=== PATIENT | female | born 1985 | race Caucasian/White ===

== ENCOUNTER → 2020-12-26 | Outpatient (CLI) | payer OTHER ==
[2020-12-26 18:40] LABS: HEMATOCRIT 37.8 % (36.0-47.0); HEMOGLOBIN 12.9 g/dl (12.0-15.5); MEAN CORPUSCULAR HEMOGLOBIN 31.3 pg (27.0-33.0); MEAN CORPUSCULAR HGB CONC 34.1 g/dl (32.0-36.5); MEAN CORPUSCULAR VOLUME 91.7 fl (80.0-96.0); PLATELET COUNT, AUTOMATED 221 10^3/uL (150-450); RED BLOOD COUNT 4.12 10^6/uL (4.00-5.40); WHITE BLOOD COUNT 6.9 10^3/uL (4.0-10.0)
[2020-12-26 20:12] LABS: HEPATITIS C VIRUS ABY INDEX < 0.0 INDEX (<0.8); HIV 1&2 SCREEN CENTAUR NEGATIVE (NEGATIVE)
[2020-12-26 23:32] LABS: GC DNA AMPLIFICATION NEGATIVE (NEGATIVE)
== END ==
LOC: M PLALAB 15:48
PROVIDERS: ATTEND Advanced Practice Midwife
DX: O09.519 Supervision of elderly primigravida, unspecified trimester (principal); Z3A.00 Weeks of gestation of pregnancy not specified

== ENCOUNTER → 2021-01-24 | Outpatient (CLI) | payer OTHER | LOC: M PLALAB 13:31 | PROVIDERS: ATTEND Advanced Practice Midwife | DX: O09.511 Supervision of elderly primigravida, first trimester (principal) ==

== ENCOUNTER → 2021-03-20 | Outpatient (CLI) | payer OTHER | LOC: M WHC 07:02 | PROVIDERS: ATTEND Advanced Practice Midwife | DX: Z36.9 Encounter for antenatal screening, unspecified (principal); Z3A.20 20 weeks gestation of pregnancy ==

== ENCOUNTER → 2021-05-09 | Outpatient (CLI) | payer OTHER ==
[2021-05-09 10:50] LABS: HEMATOCRIT 37.8 % (36.0-47.0); HEMOGLOBIN 12.7 g/dl (12.0-15.5); MEAN CORPUSCULAR HEMOGLOBIN 32.1 pg (27.0-33.0); MEAN CORPUSCULAR HGB CONC 33.6 g/dl (32.0-36.5); MEAN CORPUSCULAR VOLUME 95.5 fl (80.0-96.0); PLATELET COUNT, AUTOMATED 210 10^3/uL (150-450); RED BLOOD COUNT 3.96 10^6/uL (4.00-5.40)
[2021-05-09 13:01] LABS: GC DNA AMPLIFICATION NEGATIVE (NEGATIVE)
== END ==
LOC: M PLALAB 07:23
PROVIDERS: ATTEND Obstetrics & Gynecology
DX: Z3A.24 24 weeks gestation of pregnancy (principal)

== ENCOUNTER → 2021-07-11 | Outpatient (REF) | payer OTHER | LOC: M SFHCWAGY 17:08 | PROVIDERS: ATTEND Specialist | DX: Z34.83 Encounter for supervision of other normal pregnancy, third trimester (principal) ==

== ENCOUNTER 2021-07-24 00:41 | Inpatient (IN) | payer OTHER ==
[~2021-07-24] VITALS: Ht 167.6 cm; Wt 77.2 kg
[2021-07-24 01:08] VITALS: BP 129/79
[2021-07-24 02:52] VITALS: BP 111/76
[2021-07-24] MEDS ORDERED: TRANEXAMIC ACID INJection 1,000 MG in NS 100 ML IV PRN (04:40)
[2021-07-24] MEDS ORDERED: CARBOPROST TROMETHAMINE 250 MCG/ML AMP IM PRN (04:40)
[2021-07-24] MEDS ORDERED: LACTATED RINGER'S 1000 ML IV PRN (04:40)
[2021-07-24] MEDS ORDERED: OXYTOCIN DRIP 30 UNITS in IV 1 EA IV PRN ×4 (04:40)
[2021-07-24] MEDS ORDERED: METHYLERGONOVINE MALEATE 0.2 MG/ML VIAL (J2210) IM PRN (04:40)
[2021-07-24 05:02] LABS: HEMATOCRIT 41.4 % (36.0-47.0); HEMOGLOBIN 14.8 g/dl (12.0-15.5); MEAN CORPUSCULAR HEMOGLOBIN 32.5 pg (27.0-33.0); MEAN CORPUSCULAR HGB CONC 35.7 g/dl (32.0-36.5); PLATELET COUNT, AUTOMATED 228 10^3/uL (150-450); RED BLOOD COUNT 4.55 10^6/uL (4.00-5.40); WHITE BLOOD COUNT 9.1 10^3/uL (4.0-10.0)
[2021-07-24] MEDS ORDERED: PRENTAB9 PO (05:50)
[2021-07-24 06:08] VITALS: BP 136/78
[2021-07-24] MEDS: PRENATAL VITAMINS CHEWABLE TABLET PO SCH (09:00)
[2021-07-24] MEDS ORDERED: LIDOCAINE 1% MDV 50ML VIAL As Ordered ONE (10:37)
[2021-07-24] MEDS ORDERED: LIDOCAINE 1% MDV 20ML VIAL As Ordered ONE (10:38)
[2021-07-24] MEDS ORDERED: LIDOCAINE 1% MDV 20ML VIAL INFIL ONE (10:40)
[2021-07-24] MEDS ORDERED: ANUSOL HC CREAM 30GM TOP PRN (11:40)
[2021-07-24] MEDS ORDERED: IBUPROFEN 600MG TAB PO PRN (11:40)
[2021-07-24] MEDS ORDERED: MOM 30ML SUSPENSION UDC PO PRN (11:40)
[2021-07-24] MEDS ORDERED: METHYLERGONOVINE MALEATE 0.2 MG TAB PO PRN (11:40)
[2021-07-24] MEDS ORDERED: DOCUSATE SODIUM 100MG CAPSULE PO PRN (11:40)
[2021-07-24] MEDS ORDERED: MEASLES,MUMPS,RUBELLA VACCINE INJ (MMR-II) (90707) SC SCH (11:40)
[2021-07-24] MEDS ORDERED: DIBUCAINE 1% OINTMENT 30GM TOP PRN (11:40)
[2021-07-24] MEDS ORDERED: IBUPROFEN 800 MG TAB PO PRN (11:40)
[2021-07-24] MEDS ORDERED: ACETAMINOPHEN TAB 650MG DOSE (2X325MG) PO PRN (11:40)
[2021-07-24] MEDS ORDERED: ACETAMINOPHEN 500 MG TAB PO PRN (11:40)
[2021-07-24] MEDS ORDERED: RHOGAM 300 MCG (1500 IU) INJ (J2790) IM SCH (11:40)
[2021-07-24] MEDS ORDERED: AMPICILLIN SOD/SULBACTAM SOD 3 GM in D5W MINI-BAG PLUS 100 ML IV ONE (11:45)
[2021-07-24] MEDS ORDERED: LIDOCAINE 1% MDV 20ML VIAL SC ONE (11:55)
[2021-07-24 13:52] VITALS: BP 135/77
[2021-07-24 18:00] VITALS: BP 119/67
[2021-07-25 05:48] VITALS: BP 100/54
[2021-07-25] MEDS: PRENATAL VITAMINS CHEWABLE TABLET PO SCH (10:59)
[2021-07-25 18:00] VITALS: BP 112/54
[2021-07-26 06:00] VITALS: BP 106/57
[2021-07-26] MEDS: PRENATAL VITAMINS CHEWABLE TABLET PO SCH (11:23)
== END 2021-07-26 14:30 | disposition home or self-care (01) | DRG 807 ==
LOC: M LDO 00:41 → M LDI 04:31 → M OBS 13:51
PROVIDERS: ADMIT Obstetrics & Gynecology; ATTEND Advanced Practice Midwife
PROC: 10E0XZZ Delivery of Products of Conception, External Approach (ICD-10-PCS; principal; 2021-07-24)
PROC: 0HQ9XZZ Repair Perineum Skin, External Approach (ICD-10-PCS; 2021-07-24)
DX: O64.5XX0 Obstructed labor due to compound presentation, not applicable or unspecified (principal); Z37.0 Single live birth; Z3A.38 38 weeks gestation of pregnancy; O70.0 First degree perineal laceration during delivery

== ENCOUNTER → 2022-01-31 | Outpatient (REF) | payer OTHER ==
[~2022-01-31] MED LIST: PRENTAB9 PO
== END ==
LOC: M SFHCWAGY 17:02
PROVIDERS: ATTEND Advanced Practice Midwife
DX: Z01.419 Encounter for gynecological examination (general) (routine) without abnormal findings (principal); Z12.4 Encounter for screening for malignant neoplasm of cervix

== ENCOUNTER → 2022-08-02 | Outpatient (REF) | payer OTHER | LOC: M LAB REF 16:13 | PROVIDERS: ATTEND Physician Assistant | DX: G47.00 Insomnia, unspecified (principal) ==

== ENCOUNTER 2023-01-25 13:10 | Emergency (ER) | payer OTHER ==
[~2023-01-25] VITALS: Ht 167.6 cm; Wt 64.3 kg
[~2023-01-25 13:10] MED LIST changes: +RALTEGRAVIR 400 MG TAB (ISENTRESS) PO SCH; +TRUVADA 200MG/300MG TABLET PO SCH
[2023-01-25 13:11] VITALS: TEMP 98
[2023-01-25] MEDS ORDERED: EXPOSURE KIT-ADULT 7 DAY SUPPLY PO ONE (13:55)
[2023-01-25] MEDS ORDERED: TRUVADA 200MG/300MG TABLET PO ONE (14:05)
[2023-01-25] MEDS ORDERED: RALTEGRAVIR 400 MG TAB (ISENTRESS) PO ONE (14:05)
[2023-01-25 14:29] LABS: BASO # 0.1 10^3/uL (0.0-0.2); EOS % 0.4 % (0.0-3.0); HEMATOCRIT 40.7 % (36.0-47.0); HEMOGLOBIN 13.6 g/dl (12.0-15.5); LYMPH # 2.5 10^3/uL (1.5-5.0); LYMPH % 37.6 % (24.0-44.0); MEAN CORPUSCULAR HEMOGLOBIN 30.6 pg (27.0-33.0); MEAN CORPUSCULAR HGB CONC 33.4 g/dl (32.0-36.5); MEAN CORPUSCULAR VOLUME 91.5 fl (80.0-96.0); MONO # 0.4 10^3/uL (0.0-0.8); MONO % 5.8 % (2.0-8.0); NEUTROPHILS # 3.7 10^3/uL (1.5-8.5); NEUTROPHILS % 54.9 % (36.0-66.0); PLATELET COUNT, AUTOMATED 259 10^3/uL (150-450); RED BLOOD COUNT 4.45 10^6/uL (4.00-5.40); WHITE BLOOD COUNT 6.8 10^3/uL (4.0-10.0)
[2023-01-25 15:43] LABS: ALBUMIN 3.8 G/DL (3.2-5.2); ALKALINE PHOSPHATASE 39 U/L (46-116); ALT/SGPT 20 U/L (7.0-40); AST/SGOT 18 U/L (<34); BILIRUBIN,TOTAL 0.7 MG/DL (0.3-1.2); BLOOD UREA NITROGEN 12 MG/DL (9-23); CALCIUM LEVEL 8.7 MG/DL (8.5-10.1); CARBON DIOXIDE LEVEL 26 MMOL/L (20-31); CHLORIDE LEVEL 108 MMOL/L (98-107); CREATININE FOR GFR 0.61 MG/DL (0.55-1.30); GLOMERULAR FILTRATION RATE > 60.0 (>60); GLUCOSE, FASTING 85 MG/DL (60-100); SODIUM LEVEL 138 MMOL/L (136-145); TOTAL PROTEIN 6.6 G/DL (5.7-8.2)
[2023-01-25 15:45] LABS: HEPATITIS B SURFACE ANTIBODY NEGATIVE (POSITIVE)
[2023-01-25 16:11] LABS: HIV SCREEN CENTAUR EXPOSED NEGATIVE (NEGATIVE)
[2023-01-25 16:18] LABS: HEPATITIS C VIRUS ABY INDEX 0.03 INDEX (<0.8)
[2023-01-25] MEDS ORDERED: HEPATITIS B VACCINE 20MCG/ML 1ML SYRINGE (ADULT DOSE) IM.IMMUN ONE (16:35)
[2023-01-25 17:20] LABS: HCG, SERUM QUALITATIVE NEGATIVE (NEGATIVE)
[2023-01-25 17:45] VITALS: BP 129/75; O2SAT 98
== END 2023-01-25 17:54 | disposition home or self-care (01) ==
LOC: M ED 13:10
DX: Z77.21 Contact with and (suspected) exposure to potentially hazardous body fluids (principal); W46.1XXA Contact with contaminated hypodermic needle, initial encounter; Y99.0 Civilian activity done for income or pay

== ENCOUNTER → 2024-11-04 | Outpatient (REF) | payer OTHER ==
[~2024-11-04] MED LIST changes: -RALTEGRAVIR 400 MG TAB (ISENTRESS) PO SCH; -TRUVADA 200MG/300MG TABLET PO SCH
[2024-11-04 19:11] LABS: BASO # 0.1 10^3/uL (0.0-0.2); BASO % 1.2 % (0.0-1.0); EOS # 0.0 10^3/uL (0.0-0.5); EOS % 0.7 % (0.0-3.0); LYMPH # 2.3 10^3/uL (1.5-5.0); LYMPH % 40.1 % (24.0-44.0); MONO # 0.4 10^3/uL (0.0-0.8); MONO % 6.9 % (2.0-8.0); NEUTROPHILS # 2.9 10^3/uL (1.5-8.5); NEUTROPHILS % 50.9 % (36.0-66.0); PLATELET COUNT, AUTOMATED 219 10^3/uL (150-450)
[2024-11-04 19:14] LABS: ALT/SGPT 25 U/L (7.0-40); AST/SGOT 18 U/L (<34); CALCIUM LEVEL 9.0 MG/DL (8.5-10.1); CARBON DIOXIDE LEVEL 25 MMOL/L (20-31); CHLORIDE LEVEL 107 MMOL/L (98-107); CHOLESTEROL LEVEL 115 MG/DL (<200); CHOLESTEROL RISK RATIO 2.10 (<5); CREATININE FOR GFR 0.82 MG/DL (0.55-1.30); GLOMERULAR FILTRATION RATE > 90.0 (>58); LDL CHOLESTEROL 48.9 MG/DL (<100); NON-HDL-C 60.3 MG/DL; POTASSIUM SERUM 5.4 MMOL/L (3.5-5.1); SODIUM LEVEL 142 MMOL/L (136-145); TRIGLYCERIDES LEVEL 57 MG/DL (<150)
== END ==
LOC: M LAB REF 17:35
PROVIDERS: ATTEND Student in an Organized Health Care Education/Training Program
DX: Z00.00 Encounter for general adult medical examination without abnormal findings (principal)